=== PATIENT | female | born 1960 | race Caucasian/White ===

== ENCOUNTER 2017-04-04 17:46 | Inpatient (IN) ==
[2017-04-04] MEDS ORDERED: methylPREDNISolone 125 MG/2 ML VIAL IVP ONE (18:00)
[2017-04-04] MEDS ORDERED: Famotidine 20 MG/2 ML VIAL IVP ONE (18:00)
[2017-04-04] MEDS ORDERED: *HR* EPINEPHrine 1 MG/10 ML SYRINGE ONE (18:06)
[2017-04-04] MEDS ORDERED: Ondansetron 4 MG/2 ML VIAL ONE (18:12)
[2017-04-04] MEDS ORDERED: Ondansetron 4 MG/2 ML VIAL IVP ONE (18:14)
--- NOTE | 2017-04-04 18:16 | Emergency Department Note ---
Disposition Clinical Impression: Bigeminy, Ventricular ectopy Angioedema Qualifiers: Encounter type: initial encounter Qualified Code(s): T78.3XXA - Angioneurotic edema, initial encounter Disposition: Admitted As Inpatient Condition: Fair Referrals: NONE,PCP [Primary Care Provider] - Forms: ED Satisfaction Letter Time of Disposition: 19:14 Allergic Reaction HPI - General Chief complaint: ED Allergic Reaction Stated complaint: Poss Allergic Reaction Time Seen by Provider: 04/04/17 17:59 Source: patient Limitations: no limitations Nursing Notes Reviewed: Yes Vital Signs Reviewed: Yes - History of Present Illness HPI Narrative: 56-year-old female who comes in stating she's not sure if she got bit she has a thick tongue swollen lips are swollen on arrival. Patient does state that she's her throat feels tight has some difficulty swallowing. Patient states that she felt a bite on her head with resulting rash itching and tongue swelling Pt Subjective Complaint: allergic reaction Onset (ago): Just [employer] Exposure: unknown Symptoms: Reports: rash, itching, difficulty swallowing, tongue swelling, hoarseness Severity: moderate Treatment prior to arrival: none Previous Allergic Reaction History: none - Related Data Allergies Allergy/AdvReac Type Severity Reaction Status Date / Time bee venom protein (honey bee) AdvReac See Verified 04/04/17 17:53 Comments All systems ED: reviewed and negative except as stated. Constitutional: Denies: fever, chills, weakness, weight change Eyes: Denies: eye pain, eye discharge, vision change ENT ED: Reports: other (Oral swelling or tongue swelling). Denies: ear pain, throat pain, dental pain, hearing loss, epistaxis, congestion, dysphagia Cardiovascular: Denies: chest pain, palpitations, dyspnea on exertion, edema, syncope Respiratory: Denies: cough, dyspnea, wheezes, hemoptysis, stridor Gastrointestinal: Denies: abdominal pain, nausea, vomiting, diarrhea, constipation, hematemesis, melena, hematochezia Genitourinary: Denies: dysuria, frequency, hematuria, discharge Musculoskeletal: Denies: back pain, neck pain, arthralgia, myalgia Integumentary: Denies: rash, abrasion, lesions Neurological: Denies: headache, weakness, numbness, paresthesias, confusion, abnormal gait, vertigo Psychiatric: Denies: anxiety, depression, suicidal thoughts, homicidal thoughts , auditory hallucinations, visual hallucinations Endocrine: Denies: fatigue Hematological/Lymphatic: Denies: easy bleeding, easy bruising Allergic/Immunologic: Denies: facial swelling, urticaria Past Medical History - Past Medical History Medical history: Reports: coronary artery disease, diabetes Psychiatric history: Reports: no psych history - Social History Smoking Status: Current every day smoker Smokeless Tobacco Status: No Alcohol use: Reports: none Drug use: Reports: none Physical Exam - General Limitations: no limitations General appearance: alert - Head Head exam: atraumatic, normocephalic, normal inspection - Eye Eye exam: Present: normal appearance, PERRL, EOMI - ENT ENT exam: mucous membranes moist - Expanded ENT Exam Mouth exam: Present: lip swelling, tounge swelling - Neck Neck exam: Present: normal inspection, full ROM, trachea midline - Chest Chest inspection: Present: normal inspection, symmetric chest wall rise - Respiratory Respiratory exam: Present: normal lung sounds bilaterally - Cardiovascular Cardiovascular exam: Present: regular rate, normal rhythm, normal heart sounds - Abdominal Exam Abdominal exam: Present: soft, Non-Tender. Absent: tenderness, distention, guarding, rebound, rigidity - Extremities Exam Extremities exam: Present: normal inspection, full ROM. Absent: tenderness, pedal edema - Expanded Lower Extremity Exam Neurovascular/Tendon exam: Absent: motor deficit, sensory deficit, tendon deficit Gait: observed and normal - Back Exam Back exam: Present: normal inspection, full ROM. Absent: tenderness - Neurological Exam Neurological exam: Present: alert, oriented X3 - Psychiatric Psychiatric exam: Present: normal affect, normal mood - Skin Skin exam: Present: warm, dry, intact, normal color Course - Reevaluation(s) Reevaluation #1: I discussed with the patient prior to giving the epinephrine the dose of epinephrine and. The patient does have a history of previous stents about a year ago. I did indicate to her that there are some risk of cardiac event with the epinephrine. The patient decided that she wants to get it as the swelling in her mouth is concerning to her to that point. The patient was given the epinephrine she had an episode of vomiting with it she is also given Solu- Medrol Pepcid and Benadryl. After about 3 minutes the patient calmed down and stated that swelling was going down in her mouth and her lips. Time: 18:20 Reevaluation #2: Repeat EKG shows bigeminy no acute changes otherwise. She denies any chest pain. Time: 19:14 - Consultations Consultation #1: Discussed with Dr. Peraza cardiology admitted and observed. Time: 19:46 Consultation #2: Discussed with Dr. Flower, admit. Time: 19:52 Vital Signs Temperature 97.6 F 04/04/17 17:49 Pulse Rate 91 04/04/17 17:49 Respiratory Rate 14 04/04/17 17:49 Blood Pressure 106/65 04/04/17 17:49 O2 Sat by Pulse Oximetry 96 04/04/17 17:49 Temperature 97.6 F 04/04/17 17:49 Pulse Rate 85 04/04/17 19:05 Respiratory Rate 18 04/04/17 19:05 Blood Pressure 106/57 04/04/17 19:05 O2 Sat by Pulse Oximetry 96 04/04/17 19:05 Oxygen Delivery Oxygen Delivery Room Air Allergic Reaction - Lab Data Result diagrams: 04/04/17 18:36 04/04/17 18:36 Lab Results 04/04/17 04/04/17 04/04/17 Range/Units 18:36 18:36 18:36 WBC 11.5 H (4.3-11.1) K/mcL RBC 4.23 (3.82-4.97) M/mcL Hgb 13.0 (11.5-15.4) g/dL Hct 40.9 (35.3-44.9) % MCV 96.7 (83.0-100.0) fL MCH 30.7 (28.0-33.3) pg MCHC 31.8 (31.6-35.5) g/dL RDW 12.5 (11.5-14.5) % Plt Count 182 (140-400) K/mcL MPV 11.4 (9.4-12.4) fL Immature Gran % 1.0 (0-4) % Seg Neutrophils % 53.7 % Lymphocytes % 38.8 % Monocytes % 5.7 % Eosinophils % 0.5 % Basophils % 0.3 % Neutrophils # 6.2 (1.6-8.9) K/mcL Lymphocytes # 4.5 (0.6-4.6) K/mcL Monocytes # 0.7 (0.0-1.3) K/mcL Eosinophils # 0.1 (0.0-0.6) K/mcL Basophils # 0.0 (0.0-0.2) K/mcL Immature Plt Fraction 6.6 H (1.1-6.1) % Sodium 142 (136-145) mEq/L Potassium 3.0 L (3.5-4.5) mEq/L Chloride 104 (98-109) mEq/L Carbon Dioxide 29 (19-29) mEq/L BUN 16 (7-20) mg/dL Creatinine 1.04 (0.57-1.11) mg/dL Est GFR ( Amer) > 60 (> 60) Est GFR (Non-Af Amer) 55 L (> 60) BUN/Creatinine Ratio 15 (6-26) Glucose 204 H (70-99) mg/dL Calculated Osmolality 301 H (280-300) Calcium 9.2 (8.6-10.8) mg/dL Troponin I 0.00 (0-0.03) ng/mL - EKG Data EKG attestation: Yes I reviewed and interpreted this EKG. EKG shows normal: sinus rhythm Rhythm: NSR, PVC's Interpretation: no acute changes
[2017-04-04] MEDS ORDERED: *HR* EPINEPHrine 1 MG/ML AMPUL IM ONE (18:19)
[2017-04-04 19:13] LABS: Basophils % 0.3 %; Eosinophils # 0.1 K/mcL (0.0-0.6); Eosinophils % 0.5 %; Hematocrit 40.9 % (35.3-44.9); Immature Platelets 6.6 % (1.1-6.1); Lymphocytes # 4.5 K/mcL (0.6-4.6); Lymphocytes % 38.8 %; Mean Corpuscular HGB Conc 31.8 g/dL (31.6-35.5); Mean Corpuscular Hemoglobin 30.7 pg (28.0-33.3); Mean Corpuscular Volume 96.7 fL (83.0-100.0); Mean Platelet Volume 11.4 fL (9.4-12.4); Monocytes # 0.7 K/mcL (0.0-1.3); Monocytes % 5.7 %; Neutrophils # 6.2 K/mcL (1.6-8.9); Platelet Count 182 K/mcL (140-400); Red Blood Count 4.23 M/mcL (3.82-4.97); Red Cell Distribution Width 12.5 % (11.5-14.5); Segmented Neutrophils % 53.7 %
[2017-04-04 19:25] LABS: BUN/Creatinine Ratio 15 (6-26); Blood Urea Nitrogen 16 mg/dL (7-20); Calcium 9.2 mg/dL (8.6-10.8); Carbon Dioxide 29 mEq/L (19-29); Chloride 104 mEq/L (98-109); Glucose 204 mg/dL (70-99); Osmolality,Calculated 301 (280-300); Sodium 142 mEq/L (136-145); eGFR For African Americans > 60 (> 60); eGFR For Non-African Americans 55 (> 60)
[2017-04-04] MEDS ORDERED: Naloxone 0.4 MG/ML INJ IVP PRN (20:50)
[2017-04-04] MEDS ORDERED: Dextrose Gel 15 GM PO PRN ×2 (20:53)
[2017-04-04] MEDS ORDERED: D5% in Water 1,000 ML IVC PRN (20:53)
[2017-04-04] MEDS ORDERED: *HR* Dextrose 50 % in Water (Syg) 50 ML SYRINGE IVP PRN (20:53)
--- NOTE | 2017-04-04 20:59 | Internal Med History&Physical ---
Date of Encounter: 04/04/17 Time of Encounter: 20:56 Assessment and Plan (1) Hypokalemia Current visit: Yes Status: Acute (2) Angioedema Current visit: Yes Status: Acute now on H2 chhaya, solumedrol overnight. Close monitoring overnight Qualifiers: Encounter type: initial encounter Qualified Code(s): T78.3XXA - Angioneurotic edema, initial encounter (3) Ventricular ectopy Current visit: Yes Status: Acute check Mg, correct K. Tele overnight (4) HTN (hypertension), benign Current visit: Yes Status: Acute hold lisinopril given unsure whether due to drug or insect bite ? Continue rest of home med (5) Diabetes Current visit: Yes Status: Acute ISS while inpatient on steroids Qualifiers: Diabetes mellitus type: type 2 Diabetes mellitus complication status: without complication Diabetes mellitus intermediate insulin use: without intermediate use Qualified Code(s): E11.9 - Type 2 diabetes mellitus without complications Internal Medicine - H&P: HPI Chief complaint: Tongue, lip , mouth swelling History of present illness: Ms. Jarquin is a 56 year old female with hx of HTN on lisinopril, HLD, CAD on plavix who presents with acute onset tongue, lip, mouth swelling. Reports developed swelling at around 2-3 pm this afternoon prior to arrival. She has been taking lisinopril for 2 years now approximately for HTN. However, she also reports that she might have been stung by an unknown insect this morning while doing work around her property. In the ED, she was given epi with subsequent EKG demonstrating ventricular ectopy - PVCs. The ED d/w case with cardiology knowledge management consultant who had been consulted to assist with eval. Past Med Surg Social Fam HX - Past Medical History Medical history: coronary artery disease, diabetes Psychiatric history: no psych history - Past Surgical History Surgical History: no surgical history, non-contributory - Social History Smoking Status: Current every day smoker Smokeless Tobacco Status: No Alcohol use: none Drug use: none - Additional Family History Additional family history: History of hypertension Internal Medicine - H&P: Meds Albuterol Sulfate [Albuterol Inhaler] 2 puff IH Q4H PRN 04/04/17 [History] Atorvastatin [Lipitor] 40 mg PO HS 04/04/17 [History] Clopidogrel [Plavix] 75 mg PO DAILY 04/04/17 [History] Lisinopril [Zestril] 20 mg PO DAILY 04/04/17 [History] hydroCHLOROthiazide [Hydrochlorothiazide] 25 mg PO DAILY 04/04/17 [History] metFORMIN [Glucophage] 250 mg PO DAILY 04/04/17 [History] Allergies bee venom protein (honey bee) Adverse Reaction (Verified 04/04/17 17:53) See Comments swelling of affected area All Systems PM: A 10-system review of systems was performed and is negative for pertinent findings except as documented above in the HPI. Review of systems: ROS 14 point review of systems reviewed as best as possible given presentation. Pertinent positive or negative as per HPI or otherwise reviewed as negative - Constitutional Vitals: Temp Pulse Resp BP Pulse Ox 97.6 F 85 18 106/68 96 04/04/17 17:49 04/04/17 19:05 04/04/17 20:17 04/04/17 20:17 04/04/17 19:05 Exam: General - AAO x 3 Psych - Appropriate affect/speech. No agitation Eyes - BRUNA. Eye lids intact. No scleral icterus ENT - Oral mucosa pink, dentition intact. External ear clear/dry/intact. No thyromegaly Lymphatics - No cervical/inguinal lympadenopathy Neuro - No gross peripheral or central neuro deficits with intact CN 2-12 exam Heart - Sinus. RRR. S1 and S2 present. No added HS/murmurs appreciated. No elevated JVD appreciated. No calf swellings/erythema Lung - Adequate air entry b/l, No crackes/wheezes appreciated GI - Soft, non-tender. No hepatosplenomegaly/ascities. BS+ - No CVA/suprapubic tenderness or palpable bladder distension Skin - Intact. No rash/petechiae/ecchymosis. Warm extremities MSK - Joints with normal ROM. No joint swellings Internal Med - H&P Results - Labs CBC & Chem 7: 04/04/17 18:36 04/04/17 18:36
[2017-04-04] MEDS ORDERED: Potassium Chloride Elixir 20 MEQ/15 ML UDC PO SCH (21:00)
[2017-04-04] MEDS ORDERED: 0.9 % Sodium Chloride 1,000 ML IVC SCH (21:00)
[2017-04-04] MEDS: Insulin LISPRO 300 UNITS/3 ML VIAL SQ SCH (23:08)
[2017-04-05] MEDS: MethylPREDNISolone 40 MG/ML VIAL IVP SCH ×2 (01:57→05:32)
[2017-04-05] MEDS: *HR* Enoxaparin 40 MG/0.4 ML SYRINGE SQ SCH (05:32)
[2017-04-05] MEDS: Famotidine 20 MG/2 ML VIAL IVP SCH ×2 (05:32→17:10)
[2017-04-05 08:01] LABS: BUN/Creatinine Ratio 20 (6-26); Blood Urea Nitrogen 18 mg/dL (7-20); Calcium 9.1 mg/dL (8.6-10.8); Carbon Dioxide 28 mEq/L (19-29); Chloride 105 mEq/L (98-109); Glucose 185 mg/dL (70-99); Magnesium 1.8 mg/dL (1.6-2.6); Osmolality,Calculated 297 (280-300); Sodium 140 mEq/L (136-145); eGFR For African Americans > 60 (> 60); eGFR For Non-African Americans > 60 (> 60)
[2017-04-05 08:05] LABS: Potassium 4.7 mEq/L (3.5-4.5)
[2017-04-05] MEDS: hydroCHLOROthiazide 25 MG TABLET PO SCH (08:55)
[2017-04-05] MEDS: Insulin LISPRO 300 UNITS/3 ML VIAL SQ SCH ×4 (08:57→20:12)
--- NOTE | 2017-04-05 09:42 | Cardiology Consult Note ---
<Mitchel Winters - Last Filed: 04/05/17 11:32> Date of Encounter: 04/05/17 Time of Encounter: 08:45 Assessment and Plan (1) Ventricular ectopy Current Visit: Yes Status: Acute Patient's current ECG shows a sinus rhythm with PVCs in bigeminy. No ST elevations noted. Troponin on arrival was negative. No baseline available to compare EKG to so we requested medical records from [facility] in [place], [place] for her EKG, echocardiogram, and cardiac catheterization report. Echocardiogram and 12-lead EKG were also ordered. Patient is asymptomatic. Continue to monitor telemetry. Patient has a follow-up appointment with her nursing assoc Dr. Kelly on April 26 at 3:30 pm over at [facility] in [place], [place]. (2) Hypokalemia Current Visit: Yes Status: Resolved Patient was hypokalemic on arrival (3.0), but is currently at 4.7 on potassium chloride. Discussion w patient/family: The assessment and plan as outlined above was discussed with the patient and/or family members who expressed understanding and agreement. All questions were answered. Thank you for involving us in the care of your patient. Please call with any questions. History of Present Illness Consult date: 04/05/17 Requesting physician: Sravan Wells Consult reason: Bigeminy PVCs Chief complaint: Allergic reaction History of present illness: Ms. Jarquin is a 56 year old female with a PMH of CAD, HTN, diabetes, s/p coronary stent placement (2015) that presented to the ED on 04/04/17 for an allergic reaction secondary to a bee sting. She came in with swollen lips and throat for which she was then given epinephrine. When a repeat ECG was done afterwards, there was bigeminy of PVCs noted. Patient was hypokalemic on arrival. Troponin was negative on arrival. She denies any chest pain, shortness of breath, or numbness/tingling at the time. When spoken to today, she denies any chest pain, shortness of breath, numbness/tingling, or swelling. Patient says that her last cardiac catheterization was done in 2016 at [facility] in [place], [place] where she subsequently had a coronary stent placement. She is currently on plavix at home. Past Med Surg Social Fam HX - Past Medical History Medical history: coronary artery disease, diabetes, hyperlipidemia, hypertension Psychiatric history: no psych history - Past Surgical History Surgical History: no surgical history, non-contributory - Social History Smoking Status: Current every day smoker Packs per day: 1 Smokeless Tobacco Status: No Alcohol use: none Drug use: none Medications and Allergies Albuterol Sulfate [Albuterol Inhaler] 2 puff IH Q4H PRN 04/04/17 [History] Atorvastatin [Lipitor] 40 mg PO HS 04/04/17 [History] Clopidogrel [Plavix] 75 mg PO DAILY 04/04/17 [History] Lisinopril [Zestril] 20 mg PO DAILY 04/04/17 [History] hydroCHLOROthiazide [Hydrochlorothiazide] 25 mg PO DAILY 04/04/17 [History] metFORMIN [Glucophage] 250 mg PO DAILY 04/04/17 [History] Allergies bee venom protein (honey bee) Adverse Reaction (Verified 04/04/17 17:53) See Comments swelling of affected area All Systems Review: A 10-system review of systems was performed and is negative for pertinent findings except as documented above in the HPI. - Cardiovascular Cardiovascular: no chest pain at rest, no chest pain with exertion, no dyspnea at rest, no dyspnea on exertion, no radiating jaw, neck or arm pain, no leg edema, no palpitations, no syncope - Respiratory Respiratory: no dyspnea Physical Examination Vital Signs, Last 4 Hours Temp Pulse Resp BP Pulse Ox 04/05/17 06:47 98.5 F 66 16 114/81 98 General: Conversant, No Apparent Distress Neck: No JVD Cardiac: Reg Rate and Rhythm, Normal S1 and S2, No Murmur Lungs: Normal Breath Sounds, No Wheeze, Rales, Rhonchi Neuro: Alert and responsive Abdomen: Soft, Non-Tender Musculoskeletal: No Chest Wall Tenderness Extremities: No Clubbing, No Cyanosis, No Edema Results 04/05/17 09:10 04/05/17 07:05 Lab Results 04/05/17 07:05 Sodium 140 Potassium 4.7 H D Chloride 105 Carbon Dioxide 28 BUN 18 Creatinine 0.91 Glucose 185 H Calcium 9.1 Magnesium 1.8 Laboratory Tests 04/04/17 18:36 Troponin I 0.00 - Imaging and Cardiology Chest Xray: report reviewed (No acute pulmonary edema or consolodation.) - EKG Interpretation EKG results cardiology: personally reviewed (Sinus rhythm with PVCs in bigeminy pattern. No ST elevations.) Consult Discharge Plan - Plan Referrals: NONE,PCP [Primary Care Provider] - <JosefinajoshPerla - Last Filed: 04/05/17 11:52> Date of Encounter: 04/05/17 Assessment and Plan Discussion w patient/family: The assessment and plan as outlined above was discussed with the patient and/or family members who expressed understanding and agreement. All questions were answered. Thank you for involving us in the care of your patient. Please call with any questions. History of Present Illness History of present illness: Ms. Jarquin is a 56 year old female All Systems Review: A 10-system review of systems was performed and is negative for pertinent findings except as documented above in the HPI. Physical Examination Vital Signs, Last 4 Hours Temp Pulse Resp BP Pulse Ox 04/05/17 10:41 98.2 F 65 17 114/68 96 Results 04/05/17 09:10 04/05/17 07:05 Lab Results 04/05/17 04/05/17 07:05 09:10 WBC 11.3 H Hgb 12.6 Hct 38.1 Plt Count 169 Sodium 140 Potassium 4.7 H D Chloride 105 Carbon Dioxide 28 BUN 18 Creatinine 0.91 Glucose 185 H Calcium 9.1 Magnesium 1.8 - Attending Attestation I examined this patient and my medical decision-making was reviewed with the Resident Physician. I agree with the documented findings, disposition and treatment plan. Ms. Jarquin presented for an allergic reaction to a bee sting and received SQ epinephrine. Noted on the monitor was frequent ventricular ectopy. These events do not appear to be related seeing as she continues to have ventricular ectopy. I suspect this may be her baseline. Electrolytes have been repleted. She reports feeling asymptomatic without palpitations. She denies recently experiencing chest pain, palpitations, pre syncope or syncope. She follows a [facility] in [place] for prior PCI she says was about a year ago. She reports that she ran out of aspirin a few months ago and has not been taking it. She is unaware of the type of stent placed and does not remember being told she had to be on aspirin in addition to plavix. I asked her to discuss this with her nursing assoc at her upcoming office visit. Nevertheless, I recommend she have an echo performed for review of structure and function. If this returns without concerning findings, then she should follow up with her nursing assoc. She already has an appointment on April 26.
[2017-04-05 09:44] LABS: Basophils % 0.1 %; Hematocrit 38.1 % (35.3-44.9); Hemoglobin 12.6 g/dL (11.5-15.4); Immature Granulocytes % 0.4 % (0-4); Lymphocytes # 1.2 K/mcL (0.6-4.6); Lymphocytes % 10.6 %; Mean Corpuscular HGB Conc 33.1 g/dL (31.6-35.5); Mean Corpuscular Hemoglobin 31.5 pg (28.0-33.3); Mean Corpuscular Volume 95.3 fL (83.0-100.0); Mean Platelet Volume 11.8 fL (9.4-12.4); Monocytes # 0.1 K/mcL (0.0-1.3); Monocytes % 0.8 %; Platelet Count 169 K/mcL (140-400); Red Cell Distribution Width 12.4 % (11.5-14.5); Segmented Neutrophils % 88.1 %
[2017-04-05] MEDS: Acetaminophen 325 MG TABLET PO PRN (14:48)
--- NOTE | 2017-04-05 16:33 | Internal Med Progress Note ---
Date of Encounter: 04/05/17 Time of Encounter: 08:20 - Assessment and plan (1) Angioedema Current Visit: Yes Status: Resolved Assessment and plan: Likely secondary to insect bite/wasp sting, remote possibility of being related to ANIYA inhibitor use, as patient has been on lisinopril for 2 years with no adverse effects. Lisinopril is currently on hold. Has received a dose of epinephrine and Benadryl in the emergency room and has been on IV steroids since. Will hold steroids and continue to monitor closely. Angioedema is resolved at this time. Qualifiers: Encounter type: initial encounter Qualified Code(s): T78.3XXA - Angioneurotic edema, initial encounter (2) Bigeminy Current Visit: Yes Status: Chronic Assessment and plan: EKG and telemetry shows several PVCs with ventricular bigeminy. Cardiology consult appreciated. Follow-up echocardiogram. Trying to obtain outpatient records from patient's primary cardiology office. (3) Hypokalemia Current Visit: Yes Status: Resolved Assessment and plan: Improved with oral potassium chloride supplementation. (4) CAD (coronary artery disease) Current Visit: Yes Status: Chronic Qualifiers: Coronary Disease-Associated Artery/Lesion type: [place] artery [place] vs. transplanted heart: [place] heart Associated angina: without angina Qualified Code(s): I25.10 - Atherosclerotic heart disease of [place] coronary artery without angina pectoris (5) HTN (hypertension), benign Current Visit: Yes Status: Chronic (6) Diabetes Current Visit: Yes Status: Chronic Assessment and plan: Continue Accu-Chek blood glucose monitoring with sliding scale insulin as needed. Blood sugars noted to be well controlled. Diabetic diet. Qualifiers: Diabetes mellitus type: type 2 Diabetes mellitus complication status: with unspecified complications Diabetes mellitus shelter insulin use: without shelter use Qualified Code(s): E11.8 - Type 2 diabetes mellitus with unspecified complications - Subjective Interval history: Reports improvement in lip and facial swelling and diffuse itching; wants to go home; no chest pain, palpitations, dyspnea; - Constitutional Vitals: Temp Pulse Resp BP Pulse Ox 98.2 F 65 17 114/68 96 04/05/17 10:41 04/05/17 10:41 04/05/17 10:41 04/05/17 10:41 04/05/17 10:41 General appearance: Present: A&O X 3, answers questions appropriately - Respiratory Respiratory exam: Present: CTAB. Absent: accessory muscle use, rales, rhonchi, wheezes - Cardiovascular Cardiovascular exam: Present: RRR, +S1, +S2. Absent: diastolic murmur, gallop, rubs, systolic murmur - GI/Abdominal GI/Abdominal exam: Present: normal bowel sounds, soft, no peritoneal signs. Absent: distended, tenderness - Extremities Exam Extremities exam: Present: full ROM, warm, radial pulses palpable and symmetrical. Absent: calf tenderness, cyanotic, pedal edema - Neurological Exam Neurological exam: Present: CN II-XII intact, oriented X3, no focal deficits. Absent: pronater drift, facial droop, speech deficit - Skin Skin exam: Present: dry, intact, rash (noted to have multiple erythematous papules on B/L lower extremities) Internal Medicine: Result - Labs CBC & Chem 7: 04/05/17 09:10 04/05/17 07:05 Labs: Short CBC 04/05/17 Range/Units 09:10 WBC 11.3 H (4.3-11.1) K/mcL Hgb 12.6 (11.5-15.4) g/dL Hct 38.1 (35.3-44.9) % Plt Count 169 (140-400) K/mcL Neutrophils # 10.0 H (1.6-8.9) K/mcL BMP 04/05/17 07:05 Sodium 140 Potassium 4.7 H D Chloride 105 Carbon Dioxide 28 BUN 18 Creatinine 0.91 Glucose 185 H Calcium 9.1 Consult Discharge Plan - Plan Referrals: NONE,PCP [Primary Care Provider] -
--- NOTE | 2017-04-05 20:24 | Electrocardiograph Report ---
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
--- NOTE | 2017-04-05 20:25 | Electrocardiograph Report ---
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
[2017-04-06 05:37] LABS: Basophils % 0.1 %; Eosinophils % 0.1 %; Hematocrit 40.3 % (35.3-44.9); Hemoglobin 12.6 g/dL (11.5-15.4); Immature Granulocytes % 0.5 % (0-4); Lymphocytes # 2.7 K/mcL (0.6-4.6); Lymphocytes % 15.2 %; Mean Corpuscular HGB Conc 31.3 g/dL (31.6-35.5); Mean Corpuscular Hemoglobin 30.3 pg (28.0-33.3); Mean Corpuscular Volume 96.9 fL (83.0-100.0); Mean Platelet Volume 11.9 fL (9.4-12.4); Monocytes # 1.3 K/mcL (0.0-1.3); Monocytes % 7.4 %; Platelet Count 185 K/mcL (140-400); Red Blood Count 4.16 M/mcL (3.82-4.97); Red Cell Distribution Width 12.5 % (11.5-14.5); Segmented Neutrophils % 76.7 %
[2017-04-06 05:38] LABS: Neutrophils # 13.4 K/mcL (1.6-8.9)
[2017-04-06 05:49] LABS: BUN/Creatinine Ratio 20 (6-26); Blood Urea Nitrogen 19 mg/dL (7-20); Calcium 8.9 mg/dL (8.6-10.8); Carbon Dioxide 29 mEq/L (19-29); Chloride 106 mEq/L (98-109); Glucose 122 mg/dL (70-99); Osmolality,Calculated 298 (280-300); Sodium 142 mEq/L (136-145); eGFR For African Americans > 60 (> 60); eGFR For Non-African Americans > 60 (> 60)
[2017-04-06] MEDS: *HR* Enoxaparin 40 MG/0.4 ML SYRINGE SQ SCH (06:34)
[2017-04-06] MEDS: Famotidine 20 MG/2 ML VIAL IVP SCH (06:34)
[2017-04-06 07:17] VITALS: BP 154/78
[2017-04-06] MEDS: hydroCHLOROthiazide 25 MG TABLET PO SCH (08:56)
[2017-04-06] MEDS: Insulin LISPRO 300 UNITS/3 ML VIAL SQ SCH ×2 (08:57→12:03)
[2017-04-06] MEDS: Acetaminophen 325 MG TABLET PO PRN (09:03)
--- NOTE | 2017-04-06 10:22 | Cardiology Progress Note ---
<Mitchel Winters - Last Filed: 04/06/17 14:00> Date of Encounter: 04/06/17 Time of Encounter: 08:50 Assessment and Plan (1) Ventricular ectopy Current Visit: Yes Status: Chronic Patient's current ECG shows a sinus rhythm with PVCs in bigeminy. No ST elevations noted. Medical records were obtained from [facility] which showed documentation of her visit on 02/24/16 that she has a history of bigeminal PVCs. It also shows an echo on 02/02/16 with an EF of 50-55%. Patient is asymptomatic. Current echocardiogram from 04/05/17 shows sinus bradycardia with frequent PVCs and an LVEF of 50%, however it was noted that the LV was hard to assess secondary to frequent PVCs. Patient has a follow-up appointment with her machine tailer Dr. Kelly on April 26 at 3:30 pm over at [facility] in [place], [place]. Total VE beats in a 24-hour period was 29, 642. Recommend patient be put on metoprolol 25 mg once a day. (2) CAD (coronary artery disease) Current Visit: Yes Status: Chronic Continue home medications of atorvastatin, plavix and HCTZ. Qualifiers: Coronary Disease-Associated Artery/Lesion type: [place] artery [place] vs. transplanted heart: [place] heart Associated angina: without angina Qualified Code(s): I25.10 - Atherosclerotic heart disease of [place] coronary artery without angina pectoris Discussion w patient/family: The assessment and plan as outlined above was discussed with the patient and/or family members who expressed understanding and agreement. All questions were answered. Thank you for involving us in the care of your patient. Please call with any questions. Subjective Principal diagnosis: PVCs in Bigeminy Interval history: Spoke to patient today and she denies any chest pain, palpitations, shortness of breath, dizziness, headaches, vision changes, syncope, nausea, vomiting, or swelling. Objective Vital Signs, Last 4 Hours Temp Pulse Resp BP Pulse Ox 04/06/17 07:16 97.6 F 77 18 154/78 97 General: Conversant, No Apparent Distress Neck: No JVD, Normal carotid pulses Cardiac: Reg Rate and Rhythm, Normal S1 and S2, No Murmur Lungs: Normal Breath Sounds, No Wheeze, Rales, Rhonchi Neuro: Alert and responsive Musculoskeletal: No Chest Wall Tenderness Extremities: No Clubbing, No Cyanosis, No Edema, Normal Pulses Results 04/06/17 04:10 04/06/17 04:10 Lab Results 04/06/17 04/06/17 04:10 04:10 WBC 17.5 H D Hgb 12.6 Hct 40.3 Plt Count 185 Sodium 142 Potassium 4.0 Chloride 106 Carbon Dioxide 29 BUN 19 Creatinine 0.96 Glucose 122 H Calcium 8.9 - Imaging and Cardiology Echo: report reviewed (From 04/05/17. Sinus marlo with frequent PVCs. LVEF of 50%. ) - EKG Interpretation EKG results cardiology: personally reviewed (EKG from 04/05/17. sinus rhythm with PVCs in bigeminy. No acute changes from previous one.) Consult Discharge Plan - Plan Instructions: Palpitations (DC) Additional Instructions: F/up with PCP in 1-2 weeks Referrals: Valeria Ashraf MD [Non-Partnered Physician] - 04/21/17 1:45 pm Arpan Kelly MD [Non-Partnered Physician] - 04/26/17 3:30 pm Prescriptions: Metoprolol XL (24 HR) Succ [Toprol Xl] 25 mg PO DAILY #30 <AndrajerryPerla - Last Filed: 04/06/17 14:29> Date of Encounter: 04/06/17 Assessment and Plan Discussion w patient/family: Ms. Jarquin is asymptomatic and would like to go home. Noted on telemetry are 29,000 ventricular ectopic beats in the last 24 hours. Recommend starting Toprol which can be uptitrated as an outpatient as tolerated. She already has follow up with her primary machine tailer which she plans to attend. LVEF similar to prior findings from outpatient cardiology medical records. Continue antiplatelet agent and statin. Will sign off. Please call with questions. Results 04/06/17 04:10 04/06/17 04:10 Lab Results 04/06/17 04/06/17 04:10 04:10 WBC 17.5 H D Hgb 12.6 Hct 40.3 Plt Count 185 Sodium 142 Potassium 4.0 Chloride 106 Carbon Dioxide 29 BUN 19 Creatinine 0.96 Glucose 122 H Calcium 8.9
--- NOTE | 2017-04-06 11:26 | Discharge Summary ---
Date of Encounter: 04/06/17 Time of Encounter: 11:23 - Discharge Diagnosis (1) Angioedema Priority: Primary Status: Resolved Qualifiers: Encounter type: initial encounter Qualified Code(s): T78.3XXA - Angioneurotic edema, initial encounter (2) Bigeminy Priority: Primary Status: Chronic (3) Hypokalemia Priority: Primary Status: Resolved (4) CAD (coronary artery disease) Priority: Secondary Status: Chronic Qualifiers: Coronary Disease-Associated Artery/Lesion type: [place] artery [place] vs. transplanted heart: [place] heart Associated angina: without angina Qualified Code(s): I25.10 - Atherosclerotic heart disease of [place] coronary artery without angina pectoris (5) HTN (hypertension), benign Priority: Secondary Status: Chronic (6) Diabetes Priority: Secondary Status: Chronic Qualifiers: Diabetes mellitus type: type 2 Diabetes mellitus complication status: with unspecified complications Diabetes mellitus intermediate teacher insulin use: without long-term use Qualified Code(s): E11.8 - Type 2 diabetes mellitus with unspecified complications - Discharge Medications Prescriptions: Metoprolol XL (24 HR) Succ [Toprol Xl] 25 mg PO DAILY #30 Home Medications: Albuterol Sulfate [Albuterol Inhaler] 2 puff IH Q4H PRN 04/04/17 [History] Atorvastatin [Lipitor] 40 mg PO HS 04/04/17 [History] Clopidogrel [Plavix] 75 mg PO DAILY 04/04/17 [History] hydroCHLOROthiazide [Hydrochlorothiazide] 25 mg PO DAILY 04/04/17 [History] metFORMIN [Glucophage] 250 mg PO DAILY 04/04/17 [History] Metoprolol XL (24 HR) Succ [Toprol Xl] 25 mg PO DAILY #30 04/06/17 [Rx] Allergies/Adverse Reactions: Allergies bee venom protein (honey bee) Adverse Reaction (Verified 04/04/17 17:53) See Comments swelling of affected area Procedures/tests Complete & Pending: Procedures Performed prior 72 hours Category Date Time Status EKG [ECG 12 lead ECG] [ECG] Routine Y 04/05/17 10:30 Ordered EV echocardiogram Routine Y 04/05/17 09:28 Completed Date of admission: 04/04/17 20:50 Primary care physician: PCP NONE Discharging clinician: Cathy Rivas Anticipated date of discharge: 04/06/17 - Patient Status Disposition: Home, Self-Care Condition: Fair Functional capacity at discharge: independent ambulation Overall status at discharge: patient is progressing back to baseline - Discharge Instructions Instructions: Palpitations (DC) Follow Up With: Valeria Ashraf MD [Non-Partnered Physician] - 04/21/17 1:45 pm Arpan Kelly MD [Non-Partnered Physician] - 04/26/17 3:30 pm Additional Instructions: F/up with PCP in 1-2 weeks - Diet and Activity Activity: resume usual activities as tolerated Diet: diabetic diet, low fat, low cholesterol, low salt diet Hospital course: Ms. Jarquin is a 56 year old female with the above medical problems was admitted with complaints of lip and tongue swelling suggestive of angioedema. This was likely following wasp/insect sting while she was in her garden but there was also suspicion for allergy to ANIYA inhibitor. Patient has been on ANIYA inhibitor for the last 2 years but this has been held since admission. Her symptoms responded very well to IV steroids, Benadryl and supportive care. EKG and telemetry revealed multiple PVCs and she was noted to have ventricular bigeminy. Cardiology was consulted and records were obtained from her outpatient cardiology office and reviewed, which show that patient has had history of ventricular bigeminy. Echocardiogram was done which showed frequent PVCs, mildly decreased EF around 50%, mild left ventricular diastolic dysfunction. Patient was started on a low-dose of beta chhaya. She is currently medically stable and anxious to be discharged. she was encouraged to follow up with her outpatient councilman, which has already been scheduled. - Time Spent with Patient Total time spent providing and/or coordinating discharge services: Greater than 30 minutes (35 min) - Constitutional Vitals: Temp Pulse Resp BP Pulse Ox 97.6 F 77 18 154/78 97 04/06/17 07:16 04/06/17 07:16 04/06/17 07:16 04/06/17 07:16 04/06/17 07:16 General appearance: Present: A&O X 3 (anxious to be discharged), answers questions appropriately - Cardiovascular Cardiovascular exam: Present: bradycardia, RRR, +S1, +S2. Absent: diastolic murmur, gallop, rubs, systolic murmur
[2017-04-06] MEDS ORDERED: Metoprolol XL (24 HR) Succ 25 MG TAB.ER.24H PO SCH (12:00)
--- NOTE | 2017-04-07 14:58 | Electrocardiograph Report ---
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
== END 2017-04-06 13:50 | disposition home or self-care (01) | DRG 811 ==
LOC: EMEROO 17:46 → 2NENU 17:46
PROVIDERS: ADMIT Internal Medicine Hematology & Oncology; ATTEND Internal Medicine